=== PATIENT | female | born 1975 | race Caucasian/White ===

== ENCOUNTER 2016-09-13 17:41 | Emergency (ER) | payer OTHER | END 2016-09-13 18:26 | disposition home or self-care (01) | LOC: FER 17:41 | DX: J01.90 Acute sinusitis, unspecified (principal); F17.210 Nicotine dependence, cigarettes, uncomplicated | CPT/HCPCS: 99283 ==

== ENCOUNTER 2016-11-21 02:36 | Emergency (ER) | payer OTHER | END 2016-11-21 03:29 | disposition home or self-care (01) | LOC: FER 02:36 | DX: S62.312A Displaced fracture of base of third metacarpal bone, right hand, initial encounter for closed fracture (principal); Z87.09 Personal history of other diseases of the respiratory system; F17.210 Nicotine dependence, cigarettes, uncomplicated; W23.0XXA Caught, crushed, jammed, or pinched between moving objects, initial encounter; Y93.89 Activity, other specified | CPT/HCPCS: 73110; 73130; J1885; J2270 ==

== ENCOUNTER 2016-12-09 13:04 | Emergency (ER) | payer OTHER | END 2016-12-09 15:25 | disposition home or self-care (01) | LOC: FER 13:04 | DX: S60.211A Contusion of right wrist, initial encounter (principal); F17.200 Nicotine dependence, unspecified, uncomplicated; W22.8XXA Striking against or struck by other objects, initial encounter; Y92.009 Unspecified place in unspecified non-institutional (private) residence as the place of occurrence of the external cause | CPT/HCPCS: 73110; 73130; J1885 ==

== ENCOUNTER → 2022-03-21 | Day surgery (SDC) | payer OTHER ==
[~2022-03-21] VITALS: Ht 160 cm; Wt 54.5 kg
[~2022-03-21] MED LIST: ANORO ELLIPTA1 EACH INH; BUSPIRONE HCL15 M1 PO; CLINDAMYCIN 15150 MG PO; CYCLOBENZAPRINE10 MG PO; OMEPRAZOLE 20MG20 MG PO; PHENERGAN25 M1 PO; VITAMIN D21250 MCG PO
[2022-03-21 09:05] LABS: BASOPHIL 0.2 % (0-2); EOSINOPHIL 0 % (0-5); HCT 43.3 % (37.0-47.0); HGB 14.6 g/dl (12.5-16.0); LYMPHOCYTE 17.7 % (15-48); MCH 32.7 pg (25.0-31.0); MCHC 33.7 g/dL (32.0-36.0); MCV 97.1 fL (78.0-100.0); MONOCYTE 2.1 % (0-12); MPV 9.3 fL (6.0-9.5); NEUTROPHIL 79.7 % (41-80); NRBC 0; PLT 309 K/uL (150-400); RBC 4.46 M/uL (4.20-5.40); RDW 13.3 % (11.5-14.0); WBC 9.2 K/uL (4.0-10.5)
[2022-03-21 09:24] LABS: ALBUMIN 3.9 g/dL (3.4-5.0); BILIRUBIN - TOTAL 0.5 mg/dL (0.2-1.0); BUN/CREAT RATIO (CALC) 22.9 RATIO; CREATININE 0.7 mg/dL (0.51-0.95); GLOBULIN (CALCULATION) 4.6 g/dL; POTASSIUM 5.1 mmol/L (3.5-5.1); TOTAL PROTEIN 8.5 g/dL (6.4-8.2)
== END | disposition home or self-care (01) ==
LOC: FAS 08:28
PROVIDERS: Oral & Maxillofacial Surgery
DX: K02.9 Dental caries, unspecified (principal); K04.7 Periapical abscess without sinus; J44.9 Chronic obstructive pulmonary disease, unspecified; F17.200 Nicotine dependence, unspecified, uncomplicated; Z20.822 Contact with and (suspected) exposure to COVID-19; Z79.82 Long term (current) use of aspirin; Z79.899 Other long term (current) drug therapy; Z88.1 Allergy status to other antibiotic agents; Z88.6 Allergy status to analgesic agent
CPT/HCPCS: D7140; D7210; 36415; 71045; 80053; 85025; J1100; J2250; J2405; J2704; J7120; Q0169